=== PATIENT | female | born 1955 | race African-American/Black ===

== ENCOUNTER → 2024-01-09 15:56 | Outpatient (CLI) | payer MEDICARE, SELFPAY | PROVIDERS: PCP Internal Medicine; Visit Provider Specialist | DX: G47.33 Obstructive sleep apnea (adult) (pediatric) (principal) | CPT/HCPCS: G0399 ==

== ENCOUNTER → 2025-01-21 06:34 | Outpatient (CLI) | payer MEDICARE, BC, SELFPAY | LOC: SL 06:35 | PROVIDERS: PCP Specialist; Visit Provider Specialist | DX: G47.33 Obstructive sleep apnea (adult) (pediatric) (principal); G47.36 Sleep related hypoventilation in conditions classified elsewhere | CPT/HCPCS: G0399 ==